=== PATIENT | male | born 1960 | race Caucasian/White ===

== ENCOUNTER 2017-08-23 05:53 | Day surgery (SDC) | payer OTHER ==
[2017-08-23] MEDS ORDERED: LIDOCAINE 2% (SDV) 5 ML INJ (07:29)
[2017-08-23] MEDS ORDERED: CEFAZOLIN 1 GM INJ (07:29)
[2017-08-23] MEDS ORDERED: MEPERIDINE 100 MG INJ (07:29)
[2017-08-23] MEDS ORDERED: PROPOFOL 20 ML (07:29)
[2017-08-23] MEDS ORDERED: LABETALOL HCL 20MG INJ IV (07:30)
[2017-08-23] MEDS ORDERED: FENTAnyl 50 MCG/ML VIAL IV ×3 (07:30)
[2017-08-23] MEDS ORDERED: METOCLOPRAMIDE 10 MG INJ IV (07:30)
[2017-08-23] MEDS ORDERED: MIDAZOLAM 1 MG/ML 2 ML INJ IV (07:30)
[2017-08-23] MEDS ORDERED: MEPERIDINE 25 MG INJ IV (07:30)
[2017-08-23] MEDS ORDERED: OXYCODONE/ACETAMINOPHEN (5/325) TAB PO ×2 (07:30)
[2017-08-23] MEDS ORDERED: HYDROmorphONE (0.2 MG/ML) 10ML SYG IV (07:30)
[2017-08-23] MEDS: LACTATED RINGER'S 1,000 ML IV* (07:30)
[2017-08-23] MEDS ORDERED: DIPHENHYDRAMINE 50 MG INJ IV (07:30)
[2017-08-23] MEDS ORDERED: ONDANSETRON 4 MG INJ IV (07:30)
[2017-08-23] MEDS: CEFAZOLIN 2 GM/50 ML (PMX) 50 ML IVPB (07:30)
[2017-08-23] MEDS ORDERED: EPHEDrine SULFATE 50 MG/5 ML SYG IV (07:30)
[2017-08-23] MEDS ORDERED: hydrALAzine 20 MG INJ IV (07:30)
[2017-08-23] MEDS ORDERED: ATROPINE 1 MG/10 ML SYRINGE (07:48)
[2017-08-23] MEDS: BUPIVACAINE 0.5% (SDV) 30 ML INJ (09:01)
[2017-08-23] MEDS: HYDROmorphONE (0.2 MG/ML) 10ML SYG IV ×2 (09:20→09:29)
== END 2017-08-23 11:03 | disposition home or self-care (01) ==
LOC: SDS 05:53
DX: M23.201 Derangement of unspecified lateral meniscus due to old tear or injury, left knee (principal); M17.12 Unilateral primary osteoarthritis, left knee
CPT/HCPCS: 29881; 71045; 88304; 88311